=== PATIENT | male | born 1980 | race African-American/Black ===

== ENCOUNTER 2019-08-22 00:26 | Emergency (ER) | payer SELFPAY ==
[~2019-08-22] VITALS: Ht 167.6 cm; Wt 68.0 kg
--- NOTE | 2019-08-22 00:42 | NUR ---
ED Nurse Note: Patient presents with coplaints of genralized body aches. Patient appers discheveled and has flight of ideas but is able to answer questions. Patient is unwilling to sign homeless paperwork
--- NOTE | 2019-08-22 01:06 | Emergency Room Report ---
History of Present Illness General Chief Complaint: Behavioral Complaint Source: Patient Present Illness HPI Is a 39-year-old male with no past medical history. He presents with chief complaint of generalized body pain. He is a very vague historian. He has multiple complaints but the main issue with him he has body pain. He complained of pain in his legs and arms and every part of his body. This is a chronic problem. He want something for the pain. He denies suicidal thoughts homicidal thought. He is homeless. Allergies: Coded Allergies: No Known Allergies (Unverified , 08/22/19) COVID-19 Screening Contact w/high risk pt: No Recent Travel to affected area: No Experienced COVID-19 symptoms?: No Patient History Past Medical History: see triage record, old chart reviewed Past Surgical History: none Pertinent Family History: none Social History: Denies: smoking Immunizations: other Reviewed Nursing Documentation: PMH: Agreed; PSxH: Agreed Nursing Documentation-PMH Past Medical History: Deferred Review of Systems Eye: Denies: eye pain, blurred vision ENT: Denies: ear pain, nose congestion, throat swelling Respiratory: Denies: cough, shortness of breath Cardiovascular: Denies: chest pain, palpitations Gastrointestinal: Denies: abdominal pain, diarrhea, nausea, vomiting Musculoskeletal: Denies: back pain, joint pain Skin: Denies: rash Neurological: Denies: headache, numbness Endocrine: Denies: increased thirst, increased urine Hematologic/Lymphatic: Denies: easy bruising All Other Systems: negative except mentioned in HPI Physical Exam Vital Signs Date Time Temp Pulse Resp B/P (MAP) Pulse Ox O2 Delivery O2 Flow Rate FiO2 08/22/19 00:42 98.4 88 18 132/86 (101) 98 Room Air Vitals normal Sp02 EP Interpretation: reviewed, normal General Appearance: well appearing, no apparent distress, alert Head: normocephalic, atraumatic Eyes: bilateral eye PERRL, bilateral eye EOMI ENT: hearing grossly normal, normal pharynx Neck: full range of motion, supple, no meningismus Respiratory: chest non-tender, lungs clear, normal breath sounds Cardiovascular #1: regular rate, rhythm, no murmur Gastrointestinal: normal bowel sounds, non tender, no mass, no organomegaly, no bruit, non-distended Musculoskeletal: back normal, normal range of motion, gait/station normal Psychiatric: mood/affect normal Medical Decision Making Diagnostic Impression: Primary Impression: Behavioral disorder Additional Impression: Pain ER Course Presents with generalized pain. No trauma. Will discharge home. I offered him Motrin and he did not like that. He got up and left. Last Vital Signs Date Time Temp Pulse Resp B/P (MAP) Pulse Ox O2 Delivery O2 Flow Rate FiO2 08/22/19 00:42 98.4 88 18 132/86 (101) 98 Room Air Status: unchanged Disposition: HOME, SELF-CARE Condition: Stable Additional Instructions: Follow-up with your doctor in 7 days. Go to mental health in 7 days. Return if symptoms worsen. Arturo Noonan MD Aug 22, 2019 01:06
[2019-08-22 01:14] VITALS: BP 132/86
--- NOTE | 2019-08-22 01:14 | NUR ---
ER DISCHARGE NOTE: Patient is cleared to be discharged per ERMD, pt is aox4, on room air, with stable vital signs. pt was given dc and prescription instructions, pt was able to verbalize understanding, pt id band removed. pt is able to ambulate with steady gait. pt took all belongings.
[2019-08-22 01:20] VITALS: BP 132/86
== END 2019-08-22 01:14 | disposition home or self-care (01) ==
LOC: EMR 01:09
DX: R52 Pain, unspecified (principal)
CPT/HCPCS: 99281